=== PATIENT | female | born 2000 | race Two or more races ===

== ENCOUNTER 2022-07-18 07:42 | Emergency (ER) | payer SELFPAY ==
[2022-07-18 07:48] VITALS: BP 124/73; PULSE 70; RESP 16; TEMP 36.4; O2SAT 100; BMI 30.2
--- NOTE | 2022-07-18 07:54 | ED_ITS ---
HPI - General Adult General Chief complaint: Abdominal Pain Stated complaint: ABDOMINAL PAIN Time Seen by Provider: 07/18/22 07:54 Source: patient Mode of arrival: walk-in Limitations: no limitations History of Present Illness HPI narrative: Patient presents to emergency department complaining of abdominal pain. Patient states she's had epigastric pain and a lot of stomach problems for the last 2 years. She states she constantly has nausea, vomiting, and diarrhea. Last night she threw up 2 times and she couldn't sleep. She had called off work today. She denies any fever, chills, cough, chest pain, shortness of breath. She states she has epigastric pain and lower abdomen cramping. She denies any hematuria, dysuria. She denies any hematemesis, melena, hematochezia. She denies any coffee grounds emesis. He has not seen her doctor or a specialist regarding this problem. She denies any vaginal bleeding, discharge. Related Data Previous Rx's Medication Instructions Recorded famotidine 20 mg tablet (Pepcid) 20 mg PO DAILY #30 tabs 07/18/22 ondansetron HCl 4 mg tablet 4 mg PO DAILY PRN nausea and 07/18/22 vomiting 4 days #10 tabs Allergies Allergy/AdvReac Type Severity Reaction Status Date / Time No Known Drug Allergies Allergy Verified 07/18/22 07:54 Review of Systems ROS Narrative ROS: Unless otherwise stated in this report the patient's positive and negative responses for review of systems for constitutional, eyes, ENT, cardiovascular, respiratory, gastrointestinal, neurological, , musculoskeletal and integument systems and related systems to the presenting problem are either stated in the history of present illness or were not pertinent or were negative for the symptoms and/or complaints related to the presenting medical problem. [facility] Social History Smoking status: Current every day smoker Exam Narrative Exam Narrative: Nurses notes and vital signs reviewed and patient is not hypoxic. General: Nontoxic, Well-appearing and in no apparent distress. Skin: Warm, dry, no pallor noted. No Rash Head: Normocephalic, atraumatic. Neck: Supple, non-tender. Eye: Pupils are equal, round and EOMI. No scleral icterus. Ears, Nose, Mouth, and Throat: TM clear, no posterior oropharynx erythema or nasal mucosal hypertrophy, uvula is mid-line Oral mucosa is moist Cardiovascular: Regular Rate and Rhythm without murmur, gallop or rub. Respiratory: No accessory muscle use or respiratory distress. Lungs are clear to auscultation, no wheezing, rales or rhonchi Chest Wall: no tenderness Back: No midline thoracic or lumbar vertebral tenderness. No CVA tenderness Musculoskeletal: normal ROM, no calf or popliteal tenderness, no lower extremity edema/swelling GI: Abdomen is soft, non-distended. Normal bowel sounds. No masses appreciated. No tenderness to palpation. No rebound, guarding, or rigidity noted. Neurological: A&O x4. No cranial nerve dysfunction observed. No truncal ataxia. Moves all extremities. Sensation intact. Psychiatric: Cooperative and interactive. Normal mood and affect. Constitutional Vital Signs - 24 hr 07/18/22 07:48 07/18/22 08:54 Temperature 97.6 F Pulse Rate [Monitor] 70 74 Respiratory Rate 16 16 Blood Pressure [Left Arm] 124/73 H 110/72 Pulse Oximetry 100 100 Oxygen Delivery Method Room Air Room Air Course Vital Signs Vital signs: Vital Signs Temperature 97.6 F 07/18/22 07:48 Pulse Rate 70 07/18/22 07:48 Respiratory Rate 16 07/18/22 07:48 Blood Pressure 124/73 H 07/18/22 07:48 Pulse Oximetry 100 07/18/22 07:48 Oxygen Delivery Method Room Air 07/18/22 07:48 Temperature 97.6 F 07/18/22 07:48 Pulse Rate 74 07/18/22 08:54 Respiratory Rate 16 07/18/22 08:54 Blood Pressure 110/72 07/18/22 08:54 Pulse Oximetry 100 07/18/22 08:54 Oxygen Delivery Method Room Air 07/18/22 08:54 Medical Decision Making [facility] Narrative Medical decision making narrative: Patient had an IV established was given Zofran, bentyl and 1 L of normal saline.Patient felt better. She is tolerating by mouth. Discussed with the patie nt basic labs be done today and she would most likely need to follow-up with the specialist and primary care doctor to continue the workup. Symptoms have been ongoing for 2 years. . Patient will be given a prescription for Zofran, and Pepcid. She is to follow up with primary care doctor. Work note provided.At this time the patient is without objective evidence of an acute process requiring hospitalization or inpatient management. The patient has remained hemodynamically stable. No additional indication for emergent studies at this time. I answered all questions. Discussed discharge instructions including standard anticipatory guidance and what should prompt a return to the emergency department, including if they get worse are not getting better or develops any new or concerning symptoms. I've given them specific time frame in which to follow-up, and who to follow-up with. The patient demonstrates understanding. Patient is nontoxic and stable for discharge with outpatient follow-up. This note was created with the assistance of a speech recognition program. Although the intention is to generate documents that actually reflects the content of the visit, no guarantees can be provided that every mistake has been identified and corrected by editing. Differential Diagnosis Differential Diagnosis: Peptic ulcer disease, cholecystitis, Urinary tract infection, pancreatitis Lab Data Lab results reviewed: Yes I reviewed the patient's lab results Labs: Lab Results 07/18/22 07/18/22 Range/Units 08:00 08:25 WBC 6.9 (4.0-11.0) 10^3/uL RBC 4.10 L (4.20-5.40) 10^6/uL Hgb 12.9 (12.0-16.0) g/dL Hct 38.0 (36.0-48.0) % MCV 92.7 (81.0-99.0) fL MCH 31.5 (26.7-34.0) pg MCHC 33.9 (29.9-35.2) g/dL RDW 13.0 (11.0-15.0) % Plt Count 245 (150-450) 10^3/uL MPV 11.1 (9.5-13.5) fL Neut % (Auto) 67.4 (43.0-75.0) % Lymph % (Auto) 23.8 (20.5-60.0) % Swift % (Auto) 7.1 (1.7-12.0) % Eos % (Auto) 0.7 L (0.9-7.0) % Baso % (Auto) 0.9 (0.2-2.0) % Neut # (Auto) 4.6 (1.4-6.5) 10^3/uL Lymph # (Auto) 1.6 (1.2-3.8) 10^3/uL Swift # (Auto) 0.5 (0.3-0.8) 10^3/uL Eos # (Auto) 0.1 (0.0-0.7) 10^3/uL Baso # (Auto) 0.1 (0.0-0.1) 10^3/uL Sodium 141 (136-145) mmol/L Potassium 3.6 (3.5-5.1) mmol/L Chloride 106 (98-107) mmol/L Carbon Dioxide 25.4 (21.0-32.0) mmol/L Anion Gap 13.2 BUN 11.0 (6.4-19.3) mg/dL Creatinine 0.71 (0.55-1.02) mg/dL Est GFR ( Amer) >60 (>=60) Est GFR (Non-Af Amer) >60 (>=60) BUN/Creatinine Ratio 15.5 Glucose 98 (74-106) mg/dL Lactate 0.7 (0.4-2.0) mmol/L Calcium 9.1 (8.5-10.1) mg/dL Total Bilirubin 0.3 (0.2-1.0) mg/dL Direct Bilirubin 0.1 (0.0-0.2) mg/dL AST 10 L (15-37) U/L ALT 17 (14-59) U/L Total Protein 7.5 (6.4-8.2) g/dL Albumin 3.9 (3.4-5.0) g/dL Globulin 3.6 g/dL Albumin/Globulin Ratio 1.1 Lipase 97.0 (73.0-393.0) U/L Urine Color Lt. yellow (YELLOW) Urine Clarity Cloudy A (CLEAR) Urine pH 8.5 (5.0-9.0) Ur Specific [place] 1.015 (1.005-1.025) Urine Protein Negative (NEG/TRACE) mg/dL Urine Glucose (UA) Negative (NEGATIVE) mg/dL Urine Ketones Trace A (NEGATIVE) mg/dL Urine Occult Blood Large A (NEGATIVE) Urine Nitrite Negative (NEGATIVE) Urine Bilirubin Negative (NEGATIVE) Urine Urobilinogen 0.2 (0.2-1.0) EU/dL Ur Leukocyte Esterase Negative (NEGATIVE) Urine RBC 2-5 A (0-2) #/HPF Urine WBC None seen (NONE SEEN) #/HPF Ur Squamous Epith Cells None seen (NONE/RARE) #/LPF Discharge Plan Discharge Chief Complaint: Abdominal Pain Clinical Impression: Nausea & vomiting, Abdominal pain Patient Disposition: Home, Self-Care Time of Disposition Decision: 09:18 Mode of Transportation: Private Vehicle Prescriptions / Home Meds: New ondansetron HCl 4 mg tablet 4 mg PO DAILY PRN (Reason: nausea and vomiting) 4 Days Qty: 10 0RF famotidine [Pepcid] 20 mg tablet 20 mg PO DAILY Qty: 30 0RF Instructions: Acute Nausea and Vomiting (ED), Abdominal Pain (ED) Stand Alone Forms: Portal Instructions Referrals: CLIFTON MILLER MD [Physician] - 1 week
[2022-07-18] MEDS: 0.9 % SODIUM CHLORIDE 1,000 ML 999 ML IV (08:30)
[2022-07-18] MEDS: ONDANSETRON PF 4 MG/2 ML VIAL IV (08:31)
[2022-07-18] MEDS: DICYCLOMINE HCL 10 MG CAPSULE 20 MG PO (08:37)
[2022-07-18 08:39] LABS: Basophils Absolute Auto 0.1 10^3/uL (0.0-0.1); Basophils Percent Auto 0.9 % (0.2-2.0); Eosinophils Absolute Auto 0.1 10^3/uL (0.0-0.7); Eosinophils Percent Auto 0.7 % (0.9-7.0); Hemoglobin 12.9 g/dL (12.0-16.0); Immature Granulocytes Abs Auto 0.01 10^3/uL (0.00-0.03); Immature Granulocytes Pct Auto 0.1 % (0.0-0.5); Lymphocytes Absolute Auto 1.6 10^3/uL (1.2-3.8); Lymphocytes Percent Auto 23.8 % (20.5-60.0); Mean Corpuscular HGB Conc 33.9 g/dL (29.9-35.2); Mean Corpuscular Hemoglobin 31.5 pg (26.7-34.0); Mean Corpuscular Volume 92.7 fL (81.0-99.0); Mean Platelet Volume 11.1 fL (9.5-13.5); Monocytes Absolute Auto 0.5 10^3/uL (0.3-0.8); Monocytes Percent Auto 7.1 % (1.7-12.0); Neutrophils Absolute Auto 4.6 10^3/uL (1.4-6.5); Neutrophils Percent Auto 67.4 % (43.0-75.0); Platelet Count 245 10^3/uL (150-450); White Blood Count 6.9 10^3/uL (4.0-11.0)
[2022-07-18 08:46] LABS: Bilirubin Urine NEGATIVE (NEGATIVE); Blood Urine LARGE (NEGATIVE); Color Urine LT. YELLOW (YELLOW); Glucose Urine UA NEGATIVE (NEGATIVE); Ketones Urine TRACE mg/dL (NEGATIVE); Leukocyte Esterase Urine NEGATIVE (NEGATIVE); Nitrite Urine NEGATIVE (NEGATIVE); Protein Urine NEGATIVE (NEG/TRACE); Specific Gravity Urine 1.015 (1.005-1.025); Urobilinogen Urine 0.2 EU/dL (0.2-1.0); pH Urine 8.5 (5.0-9.0)
[2022-07-18 08:47] LABS: HCG Qualitative Urine* NEGATIVE (NEGATIVE)
[2022-07-18 08:48] LABS: Clarity Urine CLOUDY (CLEAR)
[2022-07-18 08:51] LABS: WBC Urine NONE SEEN #/HPF (NONE SEEN)
[2022-07-18 08:52] LABS: Bacteria Urine NONE SEEN #/HPF (NONE SEEN); Cast Seen? NONE SEEN #/LPF (NONE SEEN); Crystals Seen? None Seen #/HPF (None Seen); Mucus Urine NONE SEEN (NONE SEEN); Squamous Epithelial Cell Urine NONE SEEN #/LPF (NONE/RARE)
[2022-07-18 08:54] VITALS: BP 110/72; PULSE 74; RESP 16; O2SAT 100
[2022-07-18 08:59] LABS: Bilirubin Direct 0.1 mg/dL (0.0-0.2)
[2022-07-18 09:01] LABS: Alanine Aminotransferase 17 U/L (14-59); Albumin Globulin Ratio 1.1; Albumin Level 3.9 g/dL (3.4-5.0); Alkaline Phosphatase 41 U/L (46-116); Anion Gap 13.2; Aspartate Amino Transferase 10 U/L (15-37); BUN Creatinine Ratio 15.5; Bilirubin Total 0.3 mg/dL (0.2-1.0); Calcium 9.1 mg/dL (8.5-10.1); Carbon Dioxide 25.4 mmol/L (21.0-32.0); Chloride 106 mmol/L (98-107); Estimated GFR (African America >60 (>=60); Estimated GFR (Non-African Ame >60 (>=60); Globulin 3.6 g/dL; Glucose 98 mg/dL (74-106); Potassium 3.6 mmol/L (3.5-5.1); Sodium 141 mmol/L (136-145); Total Protein 7.5 g/dL (6.4-8.2)
[2022-07-18 09:08] LABS: Lactate/Lactic Acid 0.7 mmol/L (0.4-2.0)
[2022-07-18 10:24] VITALS: BP 118/89; PULSE 67; RESP 16; O2SAT 99
== END 2022-07-18 10:25 | disposition home or self-care (01) ==
PROVIDERS: Emergency Provider Emergency Medicine
DX: R10.9 Unspecified abdominal pain (principal); R11.2 Nausea with vomiting, unspecified; F17.210 Nicotine dependence, cigarettes, uncomplicated
CPT/HCPCS: 36415; 80053; 80076; 81001; 82248; 83605; 83690; 84703; 85025; 96361; 96374; 99284

== ENCOUNTER 2024-07-03 14:43 | Emergency (ER) | payer SELFPAY ==
--- OUTSIDE RECORDS SUMMARY | 2020-04-22 10:30 | XMS_ITS | Continuity of Care Document ---
Author Organization [facility] Address [address] [place] [address] Phone Care Team Providers Care Stick Feeder Name Role Phone [facility] Viviane MARTIN Unavailable Unavaila ble Allergies, Adverse Reactions, Alerts Substance Reaction Status Criticality No Known Allergies Active No Inform ation Medications Medication Instructions Dosage Effective Dates (start - stop) Status Comments Estrace 2 mg tablet take 1 tablet by oral route every day 2 MG - Active Effexor XR 37.5 mg capsule,extended release take 1 capsule by oral route every day with food 37.5 MG - Active Zyrtec 10 mg tablet take 1 tablet by oral route every day 10 MG - Active Nexplanon [address] 1 cartridge by implant route once for 3 years 1 cartridge - No Longer Active Problems Condition Type Effective Dates (start - stop) Clini denia Status Comments No Known Problems Procedures Procedure Date Nexplanon 68mg Implant INSERT DRUG IMPLANT DEVICE Nexplanon 68mg Implant OFFICE/OUTPATIENT VISIT, EST PREV VISIT, EST, AGE 12-17 OFFICE/OUTPATIENT VISIT, EST Depo Provera 1 Ml THER/PROPH/DIAG INJ, SC/IM Office Visit/FQ Depo Provera 1 Ml URINALYSIS NONAUTO W/O SCOPE OFFICE/OUTPATIENT VISIT, EST THER/PROPH/DIAG INJ, SC/IM Depo Provera 1 Ml OFFICE/OUTPATIENT VISIT, EST THER/PROPH/DIAG INJ, SC/IM Depo Provera 1 Ml OFFICE/OUTPATIENT VISIT, EST THER/PROPH/DIAG INJ, SC/IM URINE TEST PREV VISIT, NEW, AGE 12-17 Depo Provera 1 Ml THER/PROPH/DIAG INJ, SC/IM Imm Admin Through 18 Yrs Of Age 016 HPV 9 Valent IMMUNIZATION ADMIN HPV 9 Valent Imm Admin Through 18 Yrs Of Age 016 HEP A VACC, PED/ADOL, 2 DOSE Imm Admin Through 18 Yrs Of Age 016 HPV 9 Valent IMMUNIZATION ADMIN HEP A VACC, PED/ADOL, 2 DOSE IMMUNIZATION ADMIN, EACH ADD HPV 9 Valent Imm Admin Through 18 Yrs Of Age 015 HEP A VACC, PED/ADOL, 2 DOSE Imm Admin Through 18 Yrs Of Age 015 H PAPILLOMA VACC 3 DOSE IM Imm Admin Through 18 Yrs Of Age 015 Meningococcal Conjugate Vaccine 015 Imm Admin Through 18 Yrs Of Age 015 TDAP VACCINE >7 IM IMMUNIZATION ADMIN HEP A VACC, PED/ADOL, 2 DOSE IMMUNIZATION ADMIN, EACH ADD DTAP VACCINE, < 7 YRS, IM H PAPILLOMA VACC 3 DOSE IM MENINGOCOCCAL VACCINE, IM Advance Directives Directive Yes / No Effective Date File Name No Information Encounters Encounter Description Practice Location Reason(s) For Visit Diagnoses Date Provider Providers Copied on Encounter OFFICE/OUTPA TIENT VISIT, [facility], [address], [place], [id number] , [place] tel: [phone] [facility] contraception (chief complaint) Body mass index [BMI] 37.0-37.9, adultNexplanon insertionEncount er for initial prescription of other contraceptives 1 [facility] Viviane. [address] [place] [address], [id number] , [place]. tel: [phone] PREV VISIT, [facility], AGE 12-17 [facility], [address] [place] [address], [id number] , [place] tel: [phone] [facility] annual exam (chief complaint) - STD screen- STD liefstyle code- Well woman normal findingsBody mass index [BMI] 36.0-36.9, adultcontracepti ve management 1 [facility] Viviane. [address] [place] [address], [id number] , [place]. tel: [phone] OFFICE/OUTPA TIENT VISIT, [facility], [address] [place] [address], [id number] , [place] tel: [phone] [facility] contraception (chief complaint) Depo Provera injectionBody mass index [BMI] 35.0-35.9, adult 0 [facility] Viviane. [address], [place], [id number] , [place]. tel: [phone] [facility], [address] [place] [address], [id number] , [place] tel: [phone] [facility] No Information 0 [facility] Viviaen. [address] [place] [address], [id number] , [place]. tel: [phone] OFFICE/OUTPA TIENT VISIT, [facility], [address], [place], [id number] , [place] tel: [phone] [facility] contraception (chief complaint) Depo Provera injectionIncreas ed urinary frequencyBody mass index [BMI] 33.0-33.9, adult Sep-3 0-202 0 [facility] Viviane. [address], [place], [id number] , [place]. tel: [phone] OFFICE/OUTPA TIENT VISIT, [facility], [address], [place], [id number] , [place] tel: [phone] [facility] contraception (chief complaint) Depo Provera injectionBody mass index (BMI) 33.0-33.9, adult Yahir-2 0-202 0 [facility] Viviane. [address] [place] [address], [id number] , [place]. tel: [phone] OFFICE/OUTPA TIENT VISIT, [facility], [address], [place], [id number] , [place] tel: [phone] [facility] contraception (chief complaint) Depo Provera injectionBody mass index (BMI) 31.0-31.9, adult May-0 - 0 [facility] Viviane. [address] [place] [address], [id number] , [place]. tel: [phone] PREV VISIT, NEW, AGE 12-17 [facility], [address] [place] [address], [id number] , [place] tel: [phone] [facility] annual exam (chief complaint) Body mass index (BMI) 31.0-31.9, adultEncounter for test, result negative- Well woman normal findings- STD screen- STD liefstyle codeDepo Provera injection- STD educationEncount er for initial prescription of injectable contracep 0 [facility] Viviane. [address] [place] [address], [id number] , [place]. tel: [phone] [facility], [address] [place] [address], [id number] , [place] tel: [phone] [facility] No Information 6 Viscok Andersen. [address], [place], [id number] , [place]. tel: [phone] [facility], [address], [place], [id number] , [place] tel: [phone] [facility] No Information 6 Visci DO Johnson. [address], [place], [id number] , [place]. tel: [phone] [facility], [address] [place] [address], [id number] , [place] tel: [phone] [facility] No Information 5 Avni Andersen. [address] [place] [address], [id number] , [place]. tel: [phone] Family History Family Member Type Diagnosis Age At Onset Mother Problem Diabetes mellitus Sister Problem Mental illness Mother Problem Eczema Mother Problem Mental illness Father Problem Mental illness Brother Problem Mental illness Father Problem depression Immunizations Vaccine Date Status Comments HPV (9-valent) administered Source: New I mmunization Record Influenza virus vaccine, injectable, quadrivalent, split virus, preservative free, 3 years or older Fluarix, Flulaval or Fluzone Quad refused Source: New Immuniza tion Record Hep A (ped/adol, 2 dose) administered Kailey rce: New Immunization Record HPV (9-valent) administered Source: New I mmunization Record Hep A (ped/adol, 2 dose) administered Kailey rce: New Immunization Record HPV administered Source: New Imm unization Record MCV4 administered Source: New Imm unization Record Tdap administered Source: New Imm unization Record Payers Payer name Insurance type Covered libertarian ID Authoriza tion(s) Medicaid [facility] [id number] [place] [id number] [facility] [id number] Social History Type Description Quantity Date Captured Comments Alcohol Use Details Caffeine Use Details coffee and energy drinks 2 cups per day Tobacco Use Status User of moist powdered tobacco Smoking Status Unknown if ever smoked Non-Smoking Tobacco Use Details Smokeless: No Details Available Smokeless: No Details Available Sex Female Sexual Orientation Bisexual Gender Identity Female Vital Signs Date / Time: Height Weight BMI Pulse Rate Blood Pressure Temperature Respiratory Rate Body Surface Area Head Circumference Head Circ. Percentile Wt./Denilson. Percentile BMI percentile Pulse Ox Inhaled Ox 2:39 PM 61.50 in 90.718 kg (200.00 lbs) 37.1 8 kg/m eter (2) 100 /min 128/85 mm[Hg] 18 /min 98 Chief Complaint And Reason For Visit From encounter dated '04/22/2020 14:30'. contraception (chief complaint). Description: Patient is here for Nexplanon insertion. States understanding of BTB associated with Nexplanon and is okay if she has irregular cycles or no cycle at all. Desires to go forward with insertion. Reason For Referral Reason For Referral No Information Plan Of Treatment Date Type Action Status Goal Dietary management education , guidance, and counseling completed Goal Dietary management education , guidance, and counseling completed Goal Tobacco cessation counseling completed Goal Dietary management education , guidance, and counseling completed Goal Dietary management education , guidance, and counseling completed Goal Dietary management education , guidance, and counseling completed Goal Dietary management education , guidance, and counseling completed Goal Dietary management education , guidance, and counseling completed History Of Present Illness Encounter Date Complaint History Of Prese nt Illness contraception Patient is here for Nexplanon insertion. States understanding of BTB associated with Nexplanon and is okay if she has irregular cycles or no cycle at all. Desires to go forward with insertion. annual exam Currently pregna nt: no. Patient is not contemplating . The patient states she uses Depo-Provera and condoms, male for control. Last LMP was 04/01/2020. Her menses is irregular with spotting flow with a frequency of varies. Negative for dysmenorrhea and menorrhagia. Negative for: breast discharge, breast lump(s), breast pain and breast self exam.Negative for Hormone replacement therapy. The patient does use tobacco. Tobacco cessation has been discussed. She does drink alcohol. Additional information: Patient is here for annual exam. C/O increased anxiety and fear of first pelvic exam. C/o increased pain and discomfort with penetration during sex. C/O increased discomfort with speculum exam today.. contraception Patient does not desire in the near future. Doing well with Depo Provera and desires to continue. contraception Patient does not desire in the near future. Doing well with Depo Provera and desires to continue. contraception Patient does not desire in the near future. Doing okay with Depo Provera, but continues to have BTB. Does not desires to change BCM at this time. contraception Patient does not desire in the near future. Doing well with Depo Provera and desires to continue. annual exam Currently pregna nt: no. Patient is not contemplating . The patient states she uses condoms, male for control. Last LMP was 03/21/2019. Her menses is regular with normal flow with a frequency of every 28 days. Negative for dysmenorrhea and menorrhagia. Negative for: breast discharge, breast lump(s), breast pain and breast self exam. The patient does not use tobacco. She does not drink alcohol. Additional information: Patient is here for annual exam. Is currently in a relationship and sexually active. Has had unprotected IC in the pas. Last time was about 1 month ago. Would like Depo Provera for BC. Denies HISTOLOGY TECH problems at this time. Partner is her same age and she feels safe in her relationship. Mother is here at appt with patient.. Functional Status Date Functional Assessmen t No Information Instructions Date Instruction Additional Infor perlita Encouraged to monito r Nexplanon insertion site for s/s of infection. RTC 1 month for follow up visit. Encouraged condoms to prevent STDs. May take motrin 800mg po Q 8hr PRN discomfort. Patient states understanding Related to Nexplanon insertion Dietary management e ducation, guidance, and counseling Related to Body mass index [BMI] 37.0-37.9, adult Giving encouragement to exercise Related to Body mass index [BMI] 37.0-37.9, adult Discussed BC options and patient desires to change form Depo Provera to Nexplanon. Appt made. Related to contraceptive management Cervical cultures se nt to lab. Patient to call in 1 week for results Related to - STD screen Encouraged monthly B SE. Recommend calcium 1000mg QD. Encouraged good dietary intake and exercise. Laboratory specimens sent to lab. Patient to call in 2 weeks if desires results.Discussed control options and patient desires Nexplanon. she is currently on Depo Provera. Appt made to RTC for nexplanon insertion Related to - Well woman normal findings Dietary management e ducation, guidance, and counseling Related to Body mass index [BMI] 36.0-36.9, adult Giving encouragement to exercise Related to Body mass index [BMI] 36.0-36.9, adult May continue Depo Pr overa. Encouraged calcium 1000mg QD. Recommend condoms for back up BC and to prevent STDs Related to Depo Provera injection Dietary management e ducation, guidance, and counseling Related to Body mass index [BMI] 35.0-35.9, adult Giving encouragement to exercise Related to Body mass index [BMI] 35.0-35.9, adult Urine culture sent t o lab. Patient to call in 1 week for result Related to Increased urinary frequency May continue Depo Pr overa. Encouraged calcium 1000mg QD. Recommend condoms for back up BC and to prevent STDs Related to Depo Provera injection Giving encouragement to exercise Related to Body mass index [BMI] 33.0-33.9, adult Dietary management e ducation, guidance, and counseling Related to Body mass index [BMI] 33.0-33.9, adult May continue Depo Pr overa. Encouraged calcium 1000mg QD. Recommend condoms for back up BC and to prevent STDsRx for estrace 2mg 1 po Q HS #30 with 1 RF Related to Depo Provera injection Dietary management e ducation, guidance, and counseling Related to Body mass index (BMI) 33.0-33.9, adult Giving encouragement to exercise Related to Body mass index (BMI) 33.0-33.9, adult May continue Depo Pr overa. Encouraged calcium 1000mg QD. Recommend condoms for back up BC and to prevent STDs Related to Depo Provera injection Dietary management e ducation, guidance, and counseling Related to Body mass index (BMI) 31.0-31.9, adult Giving encouragement to exercise Related to Body mass index (BMI) 31.0-31.9, adult Cervical cultures se nt to lab. Patient to call in 1 week for results Related to - STD screen May continue Depo Pr overa. Encouraged calcium 1000mg QD. Recommend condoms for back up BC and to prevent STDs Related to Depo Provera injection Discussed STDs in de tail. Condoms given to patient to prevent STDs and back up BC. Related to - STD education Encouraged monthly B SE. Recommend calcium 1000mg QD. Encouraged good dietary intake and exercise. Laboratory specimens sent to lab. Patient to call in 2 weeks if desires results.Discussed control options and patient desires Depo provera Related to - Well woman normal findings Dietary management e ducation, guidance, and counseling Related to Body mass index (BMI) 31.0-31.9, adult Giving encouragement to exercise Related to Body mass index (BMI) 31.0-31.9, adult Assessments Type Assessment Date assessment Body mass index [BMI] 37.0-37.9, adult assessment Nexplanon insertion assessment Encounter for initial prescripti on of other contraceptives Patient Care Teams Name Effective Dates (start - stop) Status Members No Information
--- OUTSIDE RECORDS SUMMARY | 2024-02-01 09:00 | XMS_ITS ---
Author Organization [facility] Address [address] [place] [address] Care Team Providers Care Game Preserve Manager Name Role Phone Victorion Alexander Primary Care Provider REASON FOR VISIT 1 MONTH F/U- MED CHECK Encounters Encounter Location Date Provider Diagnosis [facility] [address] [place] [address] 02/01/2024 Victorino Benjamin Plan Of Treatment No Information Progress Notes * SHIRLEY BUSTILLO LDOB: [birth year] (23 yo F)Acc No.[id number]:02/01/2024 Progress Notes Patient: Ronaldo ROCHA SHIRLEY Tu Appointment Provider: Axel ALEXANDER :2000 A ge:23 Y S ex:Female Date:02/01/2024 Address:[address] [place], [place] [id number] Subjective: * Chief Complaints: * 1 . 1 MONTH F/U- MED CHECK. * Medical History: Objective: * Vitals: Assessment: Plan: * Treatment: * Images: * Electronic signature of [facility] colin Alexander DO on 07/03/2024 at 02:53 PM EDT Sign off status: Pending * Appointment Provider: Axel ALEXANDER Date: 1 04/03/2023 Generated for Printi ng/Faxing/eTransmitting on: 0 07/03/2024 02:53 PM EDT
[2024-07-03 14:52] VITALS: BP 121/97; PULSE 73; TEMP 36.7; O2SAT 100; BMI 26.2
--- OUTSIDE RECORDS SUMMARY | 2024-07-03 14:53 | XMS_ITS | Patient Health Record ---
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 Name Role Phone Victorino Alexander Primary Care Provider Mariza Arizmendi Unavailable Ran Delarosa Unavailable [phone] Allergies No Known Allergies Reason For Referral No Information Medications Medication SIG (Take, Route, Frequency, Duration) Notes Start Date End Date Status Sprintec 28 0.25-35 MG-MCG 1 tablet Oral ly Once a day for 84 days 08/30/2023 Active Cetirizine HCl 10 MG 1 tablet Orally Onc e a day for 30 day(s) 01/02/2024 Active Prochlorperazine Maleate 10 MG 1 tablet as needed Orally Three times a day for 10 days 10/06/2023 Active Azelastine HCl 0.15 % 1 spray in each no stril Nasally Twice a day for 30 days 01/02/2024 Active Immunizations Vaccine Route Administration Date Status Comme nts DTAP Unknown 2002 Administered DTAP Unknown 2002 Administered DTAP Unknown 02/22/2003 Administered DTAP Unknown 05/12/2004 Administered Hep A peds/adol Unknown 07/11/2014 Administered Hep A peds/adol Unknown 10/24/2015 Administered Hep B Peds/Adol Unknown 2002 Administered Hep B Peds/Adol Unknown 02/22/2003 Administered Hib (ACTHIB) Unknown 2002 Administered Hib (ACTHIB) Unknown 02/22/2003 Administered HPV Unknown 07/11/2014 Administered HPV Unknown 10/24/2015 Administered HPV Unknown 02/12/2016 Administered Influenza 3+ PRIVATE Unknown 11/22/2003 Administered Influenza 3+ PRIVATE Unknown 12/16/2006 Administered Meningococcal (MENACTRA) Unknown 07/11/2014 Administere d MMR Unknown 11/22/2003 Administered MMR Unknown 12/16/2006 Administered PFIZER IM Intramuscular 01/15/2021 Administered PFIZER IM Intramuscular 02/11/2021 Administered 2ND DO SE Pneumococcal 13 Unknown 2002 Administered Pneumococcal 13 Unknown 2002 Administered Pneumococcal 13 Unknown 02/22/2003 Administered Pneumococcal 13 Unknown 11/22/2003 Administered Polio, IPV Unknown 2002 Administered Polio, IPV Unknown 05/12/2004 Administered Polio, IPV Unknown 12/16/2006 Administered TDAP Unknown 07/11/2014 Administered Varicella (VARIVAX) Unknown 11/22/2003 Administered Varicella (VARIVAX) Unknown 12/16/2006 Administered xxxxIPV; MDV10 Unknown 2002 Administered Social History Tobacco Use: Social History Observation Description Date Details (start date - stop date) Never Smoker NA - NA Sexual Hx: Question Answer Notes Had sex in the last 12 months (vaginal, oral, or anal)? Yes Have you ever had an STD? No Depression Screening (PHQ-9): Question Answer Notes Little interest or pleasure in doing things Not at all Feeling down, depressed, or hopeless Not at all Trouble falling or staying asleep, or sleeping t oo much Not at all Feeling tired or having little energy Not at all Poor appetite or overeating Not at all Feeling bad about yourself-o r that you are a failure or have let yourself or your family down Not at all Trouble concentrating on thi ngs, such as reading the newspaper or watching television Not at all Moving or speaking so slowly that other people could have noticed. Or the opposite being so fidgety or restless that you have been moving around a lot more than usual Not at all Thoughts that you would be b toya off , or of hurting yourself in some way Not at all Total Score 0 AUDIT-C (Standard) Question Answer Notes Did you have a drink contain ing alcohol in the past year? Yes How often did you have six o r more drinks on one occasion in the past year? 2 to 4 times a month (2 points) How many drinks did you have on a typical day when you were drinking in the past year? 3 or 4 drinks (1 point) How often did you have a dri nk containing alcohol in the past year? 2 to 4 times a month (2 points) Points 5 Interpretation Positive Tobacco Control (Standard) Question Answer Notes Tobacco use: Nonsmoker Section Notes: Denies alcohol use,tobacco u se & illegal drug use. Denies alcohol use,tobacco u se & illegal drug use. Denies alcohol use,tobacco u se & illegal drug use. no smoke exposure in home Denies alcohol use,tobacco u se & illegal drug use. Denies alcohol use,tobacco u se & illegal drug use. no smoke exposure in home Denies alcohol use,tobacco u se & illegal drug use. Denies alcohol use,tobacco u se & illegal drug use. Denies alcohol use,tobacco u se & illegal drug use. Denies alcohol use,tobacco u se & illegal drug use. Denies alcohol use,tobacco u se & illegal drug use. Denies alcohol use,tobacco u se & illegal drug use. Denies alcohol use,tobacco u se & illegal drug use. Denies alcohol use,tobacco u se & illegal drug use. no smoke exposure in home Denies alcohol use,tobacco u se & illegal drug use. Denies alcohol use,tobacco u se & illegal drug use. Denies alcohol use,tobacco u se & illegal drug use. Denies alcohol use,tobacco u se & illegal drug use. Denies alcohol use,tobacco u se & illegal drug use. Problems Problem Type SNOMED Code ICD Code Onset Dates Problem Status W/U Status Risk Notes Problem Adjustment disorder with depressed mood (43989972) Adjustment disorder with depressed mood (F43.21) Active confirmed Problem Obesity (831236123) Obesity (E66.9) Active conf irmed Problem 72911453 Anxiety (F41.9) Active confirmed Problem Chronic constipation (291601575) Chronic constipation (K59.00) Active confirmed Problem 395622328 GERD without esophagitis (K21.9) Active confirmed Problem 74748973825722 Abnormal uterine bleeding (N93.9) Active confirmed Problem 941379460 Tension headache (G44.209) Active confirmed Problem Irritable bowel syndrome characterized by constipation (430593121) Irritable bowel syndrome with constipation (K58.1) Active confirmed Problem Moderate major depression, single episode (39346615) Current moderate episode of major depressive disorder without prior episode (F32.1) Active confirmed Problem 444486982892603 Allergic rhinitis due to animal hair and dander (J30.81) Active confirmed Problem 992147123 Seasonal allergic rhinitis, unspecified trigger (J30.2) Active confirmed Vital Signs Heart Rate 87 /min 10/06/2023 Temperature 98.3 degrees Fahrenheit 10/06/2023 Oximetry 99 % 10/06/2023 Blood pressure diastolic 89 mm Hg 10/06/2023 Height 62 in 01/02/2024 Blood pressure systolic 126 mm Hg 10/06/2023 Weight 140 lbs 01/02/2024 BMI 25.6 kg/m2 01/02/2024 Encounters Encounter Location Date Provider Diagnosis [facility] [address] [place] [address] 07/20/2023 Mariza Arizmendi [facility] [address] [place] [address] 07/21/2023 [facility] [address] [place] [address] 08/01/2023 Ran Delarosa Encounter for surveillance of other contraceptives Z30.49 [facility] [address] [place] [address] 08/12/2023 Victorino Benjamin [facility] [address] [place] [address] 07/21/2023 Mariza Arizmendi Family planning Z30.09 [facility] [address] [place] [address] 08/30/2023 Victorino Rice Nausea R11.0 and Encounter for surveillance of other contraceptives Z30.49 [facility] [address] [place] [address] 10/06/2023 Victorino Rice Nausea R11.0 ; Abnormal uterine bleeding N93.9 and Encounter for surveillance of other contraceptives Z30.49 [facility] [address] [place] [address] 01/02/2024 Victorino Rice Nausea R11.0 ; Abnormal uterine bleeding N93.9 and Seasonal allergic rhinitis, unspecified trigger J30.2 [facility] [address] [place] [address] 08/01/2023 Ran Isaura Encounter for surveillance of other contraceptives Z30.49 Assessments Encounter Date Diagnosis (ICD Code) Assessment Notes Treatment Notes Treatment Clinical Notes Section Notes 07/21/2023 Family planning (ICD-10 - Z30.09) Pt is requesting Nexplanon be removed due to having it in place for 4 years. Pt is interested in getting on oral control after her nexplanon is removed. Will start prior auth process for removal. 08/01/2023 Encounter for surveillance of other contraceptives (ICD-10 - Z30.49) see procedure note below, gave post care instructions - Discussed options for control pills, including those with more or less hormones and those that require taking at the same time every day. If patient experiences any issues with the chosen pill, consider switching to a low estrogen form. If patient experiences bleeding for more than a week after starting the pill, she should contact the clinic to discuss options for resetting her cycle. - Risks and side effects: Patient has been informed of the potential for mood swings and weight gain with some forms of control pills. 08/01/2023 Encounter for surveillance of other contraceptives (ICD-10 - Z30.49) 08/30/2023 Nausea (ICD-10 - R11.0) Patient was having a lot of nausea secondary to the control. She went to the emergency department and was given Zofran. I asked her if she needed anything else for the nausea, she says no at the moment. Consider Zofran if needed for nausea 08/30/2023 Encounter for surveillance of other contraceptives (ICD-10 - Z30.49) Patient is here to discuss various forms of control. She was previously on Nexplanon insertion, and did not like it due to the process of getting it removed and replaced was making her very anxious. Before that, she was on the Depo shot, which made her gain a lot of weight. She's now trying oral contraceptive pills and was on Jennifer. Since starting Jennifer she has had lots of nausea and headaches, which she contributes to this medication. She also went to the emergency department due to intractable, nausea and vomiting about a week ago. We discussed multiple options for control, includin) Continuing Jennifer, giving it another month to see if the side effects will go away 2) An IUD, which Education was given for 3) Switching to different OCP with a different progestin We elected to go with Sprintec. Patient wanted to try this for a month, and then come back in a month to see if there's any side effects or symptoms. If she's still having issues, consider going with an IUD, or a Lo Loestrin (lower estrogen, different progestin) PLAN: D/C Jennifer Start Sprintec F/u 1 month 10/06/2023 Nausea (ICD-10 - R11.0) Patient was having a lot of nausea secondary to the control. She went to the emergency department and was given Zofran. The Zofran doesn't really work well for her, so would like to rx compazine 10/06/2023 Abnormal uterine bleeding (ICD-10 - N93.9) Patient was recently switched to Sprintec, and this has helped her substantially so far. She still has some nausea, but the AUB has ceased. Her periods are now absent/regular. Would like to continue this for another few months 01/02/2024 Nausea (ICD-10 - R11.0) Continue the zofran PRN 01/02/2024 Abnormal uterine bleeding (ICD-10 - N93.9) The patient initially received some benefit from being on Sprintec, but eventually was not able to continue the control due to persistent nausea, vomiting, bloating, and headaches. We did discuss alternative options today, but the patient would like to remain on nothing for control as her initial sx of abnormal uterine bleeding and nausea have improved. I would have a follow up conversation about control especially if the patient becomes sexually active. She can do natural family planning with body temperature regulation if necessary Consider TSH if sx reoccur 01/02/2024 Seasonal allergic rhinitis, unspecified trigger (ICD-10 - J30.2) Based on history and physical examination, it sounds like the patient has been dealing with allergic rhinitis type of symptoms. These have been occurring seasonally for the last couple of years. She does not have any pets at home. We did discuss options for pursuit of her current condition with either medical treatment only or referral for allergy testing plus medical treatment. The patient would elect to just be treated for allergic rhinitis type symptoms, and then, if these don't improve, go get formal allergy test PLAN: Zyrtec 10 mg daily Azelastine F/u 1 month 10/06/2023 Encounter for surveillance of other contraceptives (ICD-10 - Z30.49) 07/21/2023 Other Body Mass Index : Care Instructions material was published 10/06/2023 Other Body Mass Index : Care Instructions material was published 01/02/2024 Other Body Mass Index : Care Instructions material was published Plan Of Treatment No Information Insurance Providers Payer Name Payer Address Payer Phone Subscriber Number Group Number Insured Name Patient Relationship to Insured Coverage Start Date Coverage End Date [facility] [address] [place] [address] [id number] SHIRLEY BUSTILLO Self - patient is the insured [address] [facility] ed 22. [address] [place] [address] [id number] SHIRLEY BUSTILLO Self - patient is the insured 0 3 [employer]ICA[employer] [facility] 22 [address] [place] [address] [id number] SHIRLEY BUSTILLO Self - patient is the insured 0 3 [employer] [place] [employer] [address] CLAIMS [place] [facility] [place] [address] [id number] SHIRLEY BUSTILLO Self - patient is the insured 3 [address] [facility] [address] [place] [address] [id number] SHIRLEY BUSTILLO Self - patient is the insured 3 3 Medical (General) History Medical History History ICD Code LEVEL 1 anxiety Surgical History Surgery Date(Month/Year) TM tubes tonsillectomy and adenoidectomy
--- NOTE | 2024-07-03 15:08 | ED_ITS ---
HPI HPI - General Adult General Chief complaint: Skin/Abscess/Foreign Body Stated complaint: RASH POSSIBLE ALERGIC REACTION Time Seen by Provider: 07/03/24 15:08 Source: patient Mode of arrival: walk-in History of Present Illness HPI narrative: The patient is a 23-year-old female who presents to the emergency department today for evaluation for concerns for rash. She endorses she has had raised red and flaking areas scattered throughout her extremities that she reports is now spreading to her abdomen and back. She mentions she has been applying calamine lotion with minimal improvement. She denies exposure to any allergens including new soaps/detergents, foods, travel/environments, or pets. She has any fevers/chills, chest pain, shortness of breath. No abdominal pain or nausea/vomiting. Additionally no diarrhea. She reports she has no known allergies. Related Data Previous Rx's ?Medication ?Instructions ?Recorded prednisone 20 mg tablet 20 mg PO DAILY 5 days #6 tab s 07/03/24 Allergies Allergy/AdvReac Type Severity Reaction Status Date / Time No Known Drug Allergies Allergy Verified 07/03/24 14:52 Review of Systems ROS Status of ROS 10 or more systems reviewed and unremark able except as noted in history and below PFSH PFSH Social History Smoking status: Current every day smoker Little interest or pleasure in doing things: not at all Feeling down, depressed, or hopeless: not at all Exam Narrative Exam Narrative: Constituational: Awake/ alert, no apparent distress, well hydrated HENMT: normocephalic, external ears normal, moist oral mucous membranes and oropharynx normal Eyes: EOMI and conjunctivae normal Neck: ROM intact Chest: inspection of chest normal Respiratory: Normal respiratory effort, clear to auscultation bilaterally Cardio: regular rate and regular rhythm GI: soft to palpation and non-tender Back: nontender MSK: ROM intact, +NVI Skin: + Few scattered and diffuse singular raised erythematous patches with dry/flaking skin to B/L UE and LE, back, and lower abdomen. Neuro: no focal deficits Psych: mental status grossly normal Constitutional Vital Signs, click to edit/add: Last Vital Signs Temp 98.1 F 07/03/24 14:52 Pulse 73 07/03/24 14:52 Resp 16 07/03/24 14:52 BP 121/97 H 07/03/24 14:52 Pulse Ox 100 07/03/24 14:52 O2 Del Method Room Air 07/03/24 14:52 Course Vital Signs Vital signs: Vital Signs Temperature 98.1 F 07/03/24 14:52 Pulse Rate 73 07/03/24 14:52 Respiratory Rate 16 07/03/24 14:52 Blood Pressure 121/97 H 07/03/24 14:52 Pulse Oximetry 100 07/03/24 14:52 Oxygen Delivery Method Room Air 07/03/24 14:52 Temperature 98.1 F 07/03/24 14:52 Pulse Rate 73 07/03/24 14:52 Respiratory Rate 16 07/03/24 14:52 Blood Pressure 121/97 H 07/03/24 14:52 Pulse Oximetry 100 07/03/24 14:52 Oxygen Delivery Method Room Air 07/03/24 14:52 Medical Decision Making MDM Narrative Medical decision making narrative: The patient is a nontoxic and well-appearing 23-year-old female who presented to the emergency department today for evaluation concerns for a rash. Initial examination patient with noted erythematous rash with dry and flaking skin that appears to be allergic in etiology. No evidence of abscess or cellulitis present. Historically no sick symptoms of fevers/chills or nausea/vomiting. No clinical evidence concerning for anaphylaxis or angioedema on exam. Additionally no concerning neurovascular or motor findings on exam. Discussed these findings with the patient including recommendations for supportive care of a nonspecific rash, likely allergic etiology. Will discharge home with a short course of prednisone. Advised on additional [id number] medical therapy including hydrocortisone and Benadryl as needed. Advised on follow-up with patient's primary care provider for reevaluation. Discussed signs and symptoms of any worsening condition and when to consider reevaluation. Patient verbalized an understanding of this and is agreeable with the plan to be discharged home. Medical Records Medical records reviewed: Yes I reviewed the patient's medical records Discharge Plan Discharge Chief Complaint: Skin/Abscess/Foreign Body Clinical Impression: Rash Patient Disposition: Home, Self-Care Prescriptions / Home Meds: New prednisone 20 mg tablet 20 mg PO DAILY 5 Days Qty: 6 0RF Rx Instructions: Take 40 mg (2 tablets) by mouth on day 1 followed by 20 mg (1 tablet) by mouth for the remaining days. Print Language: Kiswahili Instructions: Acute Rash (ED) Additional Instructions: Take prednisone as prescribed. Recommend using topical hydrocortisone. Avoid scratching any affected areas. Avoid any hot showers or soap irritants. Recommend using emollient such as Eucerin or Aquaphor to help alleviate any dry and flaking skin. Please follow-up with your primary care provider for reevaluation as discussed. Referrals: [facility] [Primary Care Provider] - 1 week
== END 2024-07-03 15:47 | disposition home or self-care (01) ==
PROVIDERS: Emergency Provider Emergency Medicine
DX: R21 Rash and other nonspecific skin eruption (principal); F17.200 Nicotine dependence, unspecified, uncomplicated
CPT/HCPCS: 99283